=== PATIENT | female | born 1970 | race Asian ===

== ENCOUNTER → 2016-12-06 | Day surgery (SDC) | payer OTHER ==
[~2016-12-06] MED LIST: GUM MASTIC/STORAX/MSAL/ALCOHOL 1 DRP DROPSBTL MC ONE; LIDOCAINE HCL 1%, 10 MG/ML (20ML VIAL) ONE
--- NOTE | 2016-12-07 13:17 | OP ---
DATE OF OPERATION: 12/06/2016 PREOPERATIVE DIAGNOSIS: Right breast mass, 9 o'clock, 3 or 4 cm from the nipple. POSTOPERATIVE DIAGNOSIS: Right breast mass, 9 o'clock, 3 or 4 cm from the nipple. PROCEDURE: Right ultrasound-guided core biopsy with clip placement. ANESTHESIA: Local. ATTENDING SURGEON: Saman Howard MD ESTIMATED BLOOD LOSS: Minimal. COMPLICATIONS: None. PROCEDURE: Patient was made aware of the risks and benefits of the procedure and consented. She was placed in the supine position and under sterile conditions a small guillermo was made in the skin. Using a 13-gauge suction biopsy device via an inferolateral approach under ultrasound guidance, 6 cores were obtained and submitted to Pathology. Likewise, under ultrasound guidance a clip was placed into the biopsy region. Well tolerated by the patient. Steri-Strip and a sterile bandage was applied. Will contact her with the results. SAMAN HOWARD M.D. [id number]
--- NOTE | 2016-12-10 12:42 | PATH ---
Surgical Pathology Report Patient Name: VALENTINA JOHNSON [facility]. Rec. #: [id number] /Age/Gender: 1970 (Age: 45) / F Account: [id number] Location: [facility] Taken: 12/06/2016 Received: 12/06/2016 Reported: 12/10/2016 Physicians: Augusto Tipton M.D. Specimen(s) Received RIGHT BREAST CORE BIOPSY 9 N3-4 Clinical History Palpable mass Ultrasound findings: Probably benign Final Diagnosis BREAST, RIGHT, 9:00 3-4 CFN, CORE BIOPSY: FIBROADENOMA. Electronically Signed Maribel Dawn M.D. Gross Description Received in formalin, labeled "right breast core biopsy 9:00 3-4 cm from nipple," are multiple ricci-yellow, cylindrical portions of fibroadipose tissue ranging from 0.3-1.5 cm. in length and averaging 0.2 cm. in diameter. The specimen is submitted in toto in 2 cassettes. Time to formalin fixation: < 1 minutes Total formalin fixation time: Approximately 8 hours. [facility]/12/06/2016 [facility]/12/06/2016
--- NOTE | 2016-12-17 11:28 | HP ---
Admitting History and Physical - Primary Care Physician PCP: Santos Mckeon - Admission Chief Complaint: Right breast fibroadenoma History of Present Illness: 45 year old ulliparous premenapausal female with palpable mass lateral aspect of right breast since 2012. US core bx at [facility] 04/2013 showed fibroadenoma. She has noticed increase size of mass and possible second density in her right breast. 11/22/2016 mammogram and us showed right upper outer quadrant mass 3 cm irregular. . Right 9:00 mass was seen on US 4.2x2.2x3 cm mass corresponding to right breast mass on mammography birad 4. Right breast 9: 00 us core biopsy 11/2016 showed fibroadenoma. She is here for excisonal biopsy right breast. History Source: Patient Limitations to Obtaining History: No Limitations - Past Medical History Rheumatology: Yes: Rheumatoid Arthritis - Past Surgical History Additional Past Surgical History: Right breast US core biopsy fibroadenoma 2012 and 2016 - Smoking History Smoking history: Never smoked Have you smoked in the past 12 months: No - Alcohol/Substance Use Hx Alcohol Use: Yes (social) Home Medications - Allergies Allergies/Adverse Reactions: Allergies Allergy/AdvReac Type Severity Reaction Status Date / Time No Known Allergies Allergy Verified 12/17/16 11:30 - Home Medications Home Medications (free text): Hydroxychloroqinine 200mg Family Disease History - Family Disease History Family Disease History: CA: Father (rectal ca 46) Physical Examination Constitutional: Yes: Well Nourished, No Distress Breast(s): Yes: Other (A cup breasts obvious dnesity under skin right breast moveable smoothly marginated and lobulated consistent with fibroadnoma. left breast negative) Problem List - Problems (1) Fibroadenoma of right breast Code(s): D24.1 - BENIGN NEOPLASM OF RIGHT BREAST Assessment/Plan Right breast excisional biopsy
== END | disposition home or self-care (01) ==
LOC: FRADUS-SUR 13:06
PROVIDERS: ATTEND Surgery Surgical Oncology
PROC: 0HBT3ZX Excision of Right Breast, Percutaneous Approach, Diagnostic (ICD-10-PCS; principal; 2016-12-06)
DX: D24.1 Benign neoplasm of right breast (principal); N63 Unspecified lump in breast
CPT/HCPCS: 19083; 87899; 88305-TC; A4648

== ENCOUNTER 2016-12-26 12:54 | Day surgery (SDC) | payer OTHER ==
[2016-12-24 18:16] VITALS: BMI 22.6
--- NOTE | 2016-12-25 10:05 | HP ---
Admitting History and Physical - Primary Care Physician PCP: Santos Mckeon - Admission Chief Complaint: Right breast fibroadenoma History of Present Illness: 45 year old nulliparous premenapausal female who had a palpable mass lateral aspect of right breast since 2012 and underwent core biopsy showinf fibroadenoma at [facility].She has been noticing increase in size of mass. mammogram and US 11/2016 showed right upper outer mass 3 cm and irregular. Bilateral Us showed right 9:00 4.2x2.2x3 cm irregular mass Birad 4. US core biopsy right breast 9:00 showed fibroadenoma 11/2016. She is here for excision. History Source: Patient Limitations to Obtaining History: No Limitations - Past Medical History ...LMP Comment: 2 weeks ago Rheumatology: Yes: Rheumatoid Arthritis - Smoking History Smoking history: Never smoked Have you smoked in the past 12 months: No - Alcohol/Substance Use Hx Alcohol Use: Yes (social) Home Medications - Allergies Allergies/Adverse Reactions: Allergies Allergy/AdvReac Type Severity Reaction Status Date / Time No Known Allergies Allergy Verified 12/24/16 17:56 - Home Medications Home Medications: Ambulatory Orders Hydroxychloroquine Sulfate [Plaquenil] 200 mg PO DAILY 12/24/16 Family Disease History - Family Disease History Family Disease History: CA: Father (rectal ca 46) Physical Examination Constitutional: Yes: Well Nourished Breast(s): Yes: Other (A cup breast bilaterally, Right breast freely mobile lobulated mass compatable with fibroadenoma 3 to 4 cm. left breast negative) Problem List - Problems (1) Fibroadenoma of right breast Code(s): D24.1 - BENIGN NEOPLASM OF RIGHT BREAST Assessment/Plan Right breast excisional biopsy
[2016-12-26] MEDS ORDERED: ONDANSETRON 4 MG/2 ML VIAL IVPB PRN (15:19)
[2016-12-26] MEDS ORDERED: KETOROLAC TROMETHAMINE 30 MG/1 ML VIAL IVPUSH PRN (15:19)
[2016-12-26] MEDS ORDERED: MIDAZOLAM HCL 2 MG/2 ML SINGLE DOSE VIAL ONE (15:29)
[2016-12-26] MEDS ORDERED: DEXTROSE 5%-0.45% SALINE 1,000 ML IV SCH (15:30)
[2016-12-26] MEDS ORDERED: PROPOFOL 20 ML ONE ×2 (15:42)
[2016-12-26] MEDS ORDERED: ONDANSETRON 4 MG/2 ML VIAL IVPUSH ONE (16:36)
[2016-12-26] MEDS ORDERED: ONDANSETRON 4 MG/2 ML VIAL IVPUSH PRN (16:37)
[2016-12-26] MEDS ORDERED: PROMETHAZINE HCL 25 MG/1 ML VIAL IVPUSH PRN (16:37)
[2016-12-26] MEDS ORDERED: oxyCODONE HCL 5 MG TABLET PO PRN (16:37)
[2016-12-26] MEDS ORDERED: ONDANSETRON 4 MG/2 ML VIAL ONE (16:40)
[2016-12-26] MEDS ORDERED: LACTATED RINGERS SOLUTION 1,000 ML IV SCH (16:45)
[2016-12-26 17:59] VITALS: TEMP 97.8
[2016-12-26 19:16] VITALS: BP 119/71; PULSE 77
--- NOTE | 2016-12-26 22:03 | OP ---
DATE OF OPERATION: 12/26/2016 PREOPERATIVE DIAGNOSIS: Right lateral breast mass. POSTOPERATIVE DIAGNOSIS: Right lateral breast mass. Await permanent section. PROCEDURE: Right breast excisional biopsy. ANESTHESIA: Local with IV sedation. SURGEON: Jluis Mckeon MD WRIST CLOSER: FRANK Georges There were no complications. Briefly, the patient is a 46-year-old, G0, P0, premenopausal female of [place] descent. She has had a palpable right lateral breast mass since 2012 and had an ultrasound core biopsy back in 2012 showing fibroadenomatoid change. She noticed it had increased in size, and ultrasound showed it to now measure 4.2 cm, and she underwent a repeat ultrasound-guided core biopsy on December 06, 2016, showing a fibroadenoma. Due to the significant increase in size, an excision was recommended. She was brought in to Ambulatory Surgery on December 26, 2016. In the holding area, site verification was made and informed consent was obtained. She was brought in to the operating room and laid on the OR table in a supine position. No antibiotics were given, given the small nature of the excision. Venodynes were placed on the lower extremities. She received IV sedation with propofol. The right breast was sterilely prepped and draped in the usual fashion. The palpable density was easily felt on the lateral aspect of the right breast. A 4-cm incision was made on the lateral aspect of the right breast, and dissection was undertaken around the palpable density, which was dissected free from the surrounding tissue. It was extremely lobulated and did have some attachment to the surrounding breast tissue but was completely removed intact. The specimen was oriented with a long lateral, short superior suture, and the previously placed biopsy clip was easily found and removed with the specimen. Hemostasis was achieved. The breast parenchyma was then slightly undermined to close the breast tissue. The breast tissue was reapproximated using 2-0 plain suture. The skin was closed using interrupted 3-0 deep dermal Vicryl suture and a running 4-0 subcuticular Biosyn suture. Mastisol, Steri-Strips were applied over the wound, with compressive dressing placed over this. She was placed in a surgical bra postoperatively. The patient tolerated the procedure well without difficulty, was awake and alert at the end of procedure and brought back to Ambulatory Surgery postoperatively. She will be discharged home the same day when discharge criteria are met. All sponge and needle counts were correct at the end of the case, and estimated blood loss was minimal. The patient will follow up in the office in 1 week for formal wound pathology check. JLUIS MCKEON M.D. [id number]
--- NOTE | 2016-12-31 16:55 | PATH ---
Surgical Pathology Report Patient Name: VALENTINA JOHNSON [facility]. Rec. #: [id number] /Age/Gender: 1970 (Age: 46) / F Account: [id number] Location: [facility] Taken: 12/26/2016 Received: 12/26/2016 Reported: 12/31/2016 Physicians: Santos Mckeon M.D. Specimen(s) Received RIGHT BREAST MASS Clinical History Previous core biopsy-fibroadenoma Ultrasound findings: Probably benign Final Diagnosis BREAST, RIGHT, MASS, EXCISION: PHYLLODES TUMOR, BORDERLINE TYPE. PHYLLODES TUMOR EXTENDS TO THE DEEP, ANTERIOR, SUPERIOR AND LATERAL MARGINS AND IS AT 1 MM FROM THE INFERIOR MARGIN. FOCAL ATYPICAL LOBULAR HYPERPLASIA (ALH). (SEE NOTE) Note: This fibroepithelial lesion shows a multinodular growth pattern with pushing borders .The lesion has a variegated appearance with areas having fibroadenomatous appearance to areas showing cleft-like glandular architecture with stromal expansion, stromal hypercellularity and stromal cell atypia. There are up to 4 mitoses/10 high power vazquez in the hypercellular stroma. 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 E-cadherin immunostain (performed at [facility]) is negative in the foci of atypical lobular hyperplasia, which supports lobular phenotype. Case reviewed intradepartmentally with consensus on diagnosis. Electronically Signed Maribel Dawn M.D. Gross Description Received in formalin labeled "right breast mass," is a 4.2 x 3.5 x 2.6 cm ricci, rubbery mass with a short suture marking the superior aspect and a long suture marking the lateral aspect of the specimen, per the surgeon. There is no needle localization wire present. There is no skin present. The specimen is inked as follows: Superior and lateral blue; inferior green; medial yellow; anterior red; deep black. The specimen is serially sectioned from lateral to medial. Sectioning reveals diffuse ricci, rubbery, lobulated fibrous tissue. Business Account Manager sections are submitted in 8 cassettes as follows: 1-lateral margin; [id number] submitted breast parenchyma from lateral to medial (each section displays anterior, inferior and deep margins); 7-medial margin; 8-superior margin. Time to formalin fixation: 3 minutes Total formalin fixation time: Approximately 26 hours. 12/27/2016 cady12/27/2016
== END 2016-12-26 18:50 | disposition home or self-care (01) ==
LOC: FASU 12:54
PROVIDERS: ATTEND Surgery Surgical Oncology
PROC: 0HBT0ZX Excision of Right Breast, Open Approach, Diagnostic (ICD-10-PCS; principal; 2016-12-26 15:51)
DX: D48.61 Neoplasm of uncertain behavior of right breast (principal)
CPT/HCPCS: 84703; 88307-TC; 88342-TC; 94760